=== PATIENT | female | born 1985 ===

== ENCOUNTER 2020-03-08 18:12 | Inpatient (IN) | payer MEDICAID ==
[~2020-03-08] VITALS: Ht 165.1 cm; Wt 82.3 kg
[~2020-03-08 18:12] MED LIST: AMPICILLIN 1 GM in SODIUM CHLORIDE 0.9% 50 ML IVPB SCH
[2020-03-08 18:30] VITALS: BP 161/110
[2020-03-08] MEDS ORDERED: PREN1TAB60 PO (18:41)
[2020-03-08] MEDS ORDERED: hydrALAzine 20 MG/ML, 1ML IVPush ONE ×2 (19:00)
[2020-03-08] MEDS ORDERED: LACTATED RINGERS 1,000 ML IV SCH ×2 (19:00→20:21)
[2020-03-08] MEDS ORDERED: LABETALOL 5MG/ML 40ML VIAL IVPush ONE (19:00)
[2020-03-08] MEDS ORDERED: hydrALAzine 20 MG/ML, 1ML ONE ×2 (19:02→19:30)
[2020-03-08 19:40] LABS: ALANINE AMINOTRANSFERASE 108 U/L (12-78); ALBUMIN 2.4 g/dL (3.4-5.0); ANION GAP 6 mmol/L (5-15); CALCIUM 8.5 mg/dL (8.5-10.1); CHLORIDE 109 mmol/L (98-107); CREATININE 0.68 mg/dL (0.55-1.02)
[2020-03-08 19:42] LABS: ALKALINE PHOSPHATASE 178 U/L (45-117); BILIRUBIN,TOTAL 0.6 mg/dL (0.2-1.0); TOTAL PROTEIN 6.2 g/dL (6.4-8.2)
[2020-03-08] MEDS ORDERED: MAGNESIUM SULF. PMX 20GM/500ML 500 ML IV ONE (19:43)
[2020-03-08] MEDS ORDERED: ACETAMINOPHEN 325 MG TABLET ONE (19:47)
[2020-03-08 19:49] LABS: MICROSCOPIC INDICATED
[2020-03-08] MEDS: ACETAMINOPHEN 325 MG TABLET PO PRN (19:49)
[2020-03-08 19:58] LABS: MEAN CORPUSCULAR HGB CONC 33.9 g/dL (32.4-35.8); MEAN CORPUSCULAR VOLUME 100.4 fL (80-100); MEAN PLATELET VOLUME 12.7 fL (7.4-10.4); PLATELET COUNT 128 x10^3/uL (130-400); RED BLOOD COUNT 3.51 x10^6/uL (3.82-5.3); RED CELL DISTRIBUTION WIDTH 11.9 % (9.6-15.2)
[2020-03-08 20:05] LABS: BASOPHILS # (AUTO) 0.01 x10^3/uL (0-0.1); BASOPHILS % (AUTO) 0 % (0-1); EOSINOPHILS # (AUTO) 0.04 x10^3/uL (0-0.4); EOSINOPHILS % (AUTO) 1 % (1-7); LYMPHOCYTES # (AUTO) 1.44 x10^3/uL (1-3.4); LYMPHOCYTES % (AUTO) 25 % (22-44); MD MORPH REVIEW ONLY; MONOCYTES # (AUTO) 0.43 x10^3/uL (0.2-0.8); MONOCYTES % (AUTO) 7 % (2-9); NEUTROPHILS # (AUTO) 3.97 x10^3/uL (1.8-6.8); NEUTROPHILS % (AUTO) 67 % (42-75)
[2020-03-08 20:06] LABS: <PLATELET ESTIMATE> DECREASED; LARGE PLATELETS 1+; POLYCHROMASIA 1+
[2020-03-08] MEDS ORDERED: MAGNESIUM SULFATE PMX 4GM/100M 100 ML ONE (20:20)
[2020-03-08] MEDS ORDERED: OXYTOCIN 30U/ 0.9% NaCL 500ML 500 ML IV PRN (20:21)
[2020-03-08] MEDS ORDERED: D5%-LACTATED RINGERS 1,000 ML IV SCH (20:21)
[2020-03-08] MEDS ORDERED: OXYTOCIN 30U/ 0.9% NaCL 500ML 500 ML IV ONE (20:21)
[2020-03-08] MEDS ORDERED: METOCLOPRAMIDE 5 MG/ML, 2ML IVPush PRN (20:30)
[2020-03-08] MEDS ORDERED: AMPICILLIN 2 GM in SODIUM CHLORIDE 0.9% 100 ML IVPB STA (20:30)
[2020-03-08] MEDS ORDERED: FENTANYL PF 100 MCG/2ML IV PRN (20:30)
[2020-03-08] MEDS ORDERED: CALCIUM CARBONATE 500 MG TAB.CHEW PO PRN (20:30)
[2020-03-08] MEDS ORDERED: TERBUTALINE 1 MG/ML, 1ML SQ PRN (20:30)
[2020-03-08] MEDS ORDERED: MAGNESIUM SULFATE PMX 4GM/100M 100 ML IVPB ONE (20:30)
[2020-03-08] MEDS ORDERED: ONDANSETRON 2MG/ML, 2ML IVPush PRN (20:30)
[2020-03-08] MEDS ORDERED: TERBUTALINE 1 MG/ML, 1ML IVPush PRN (20:30)
[2020-03-08] MEDS ORDERED: FENTANYL PF 100 MCG/2ML IVPush PRN (20:30)
[2020-03-08] MEDS ORDERED: SODIUM CITRATE/CITRIC ACID 30 ML UDC PO PRN (20:30)
[2020-03-08] MEDS: MAGNESIUM SULF. PMX 20GM/500ML 500 ML IV SCH (21:34)
[2020-03-08] MEDS ORDERED: ONDANSETRON 2MG/ML, 2ML ONE (21:38)
[2020-03-08] MEDS ORDERED: OXYTOCIN 30U/ 0.9% NaCL 500ML 500 ML ONE (21:54)
[2020-03-08] MEDS ORDERED: LIDOCAINE 1%, 20ML ONE (22:46)
[2020-03-08] MEDS ORDERED: NEWBORN KIT ONE (22:46)
[2020-03-08] MEDS ORDERED: MISOPROSTOL 200 MCG TABLET ONE (22:46)
[2020-03-09 00:16] LABS: AMPHETAMINE SCREEN, URINE Negative (Negative); BARBITURATE SCREEN, URINE Negative (Negative); BENZODIAZEPINE SCREEN, URINE Negative (Negative); CANNABINOID SCREEN, URINE Negative (Negative); COCAINE SCREEN, URINE Negative (Negative); METHADONE SCREEN, URINE Negative (Negative); OPIATE SCREEN, URINE Negative (Negative); PROTEIN/CREATININE RATIO,URINE 1905 (0-200); TOTAL PROTEIN,URINE RANDOM 200 mg/dL (0-12)
[2020-03-09] MEDS ORDERED: ACETAMINOPHEN 325 MG TABLET ONE ×3 (00:55→09:15)
[2020-03-09] MEDS: ACETAMINOPHEN 325 MG TABLET PO PRN ×3 (00:56→09:16)
[2020-03-09] MEDS: AMPICILLIN 1 GM in SODIUM CHLORIDE 0.9% 50 ML IVPB SCH ×2 (01:34→05:37)
[2020-03-09] MEDS ORDERED: MAGNESIUM SULF. PMX 20GM/500ML 500 ML IV ONE (07:32)
[2020-03-09] MEDS: MAGNESIUM SULF. PMX 20GM/500ML 500 ML IV SCH (08:00)
[2020-03-09] MEDS ORDERED: LACTATED RINGERS 1,000 ML IVBOLUS ONE (08:30)
[2020-03-09] MEDS ORDERED: METOCLOPRAMIDE 5 MG/ML, 2ML IV ONE (08:30)
[2020-03-09] MEDS ORDERED: ONDANSETRON 2MG/ML, 2ML IVPush ONE (08:30)
[2020-03-09] MEDS ORDERED: SODIUM CITRATE/CITRIC ACID 30 ML UDC ONE ×2 (10:02→11:27)
[2020-03-09] MEDS ORDERED: METOCLOPRAMIDE 5 MG/ML, 2ML ONE ×2 (10:02→11:27)
[2020-03-09] MEDS ORDERED: AMPICILLIN 1 GM in SODIUM CHLORIDE 0.9% 100 ML IVPB SCH ×2 (10:05→10:30)
[2020-03-09] MEDS ORDERED: HYDROmorphone 2 MG/ML, 1ML IVPush PRN (10:30)
[2020-03-09] MEDS ORDERED: OXYcodone 5 MG/5 ML ORAL.SOL UDC PO PRN (10:30)
[2020-03-09] MEDS ORDERED: ONDANSETRON 2MG/ML, 2ML IVPush PRN (10:30)
[2020-03-09] MEDS ORDERED: MEPERIDINE/PF 25MG/0.5ML IVPush PRN (10:30)
[2020-03-09] MEDS ORDERED: EPHEDRINE 50 MG/ML, 1ML IVPush PRN (10:30)
[2020-03-09] MEDS ORDERED: HYDROcodone/APAP 7.5-325MG/15ML UDC PO PRN (10:30)
[2020-03-09] MEDS ORDERED: METOPROLOL 1 MG/ML, 5ML IV PRN (10:30)
[2020-03-09] MEDS ORDERED: ALBUTEROL SULFATE 2.5 MG/3 ML NPPB PRN (10:30)
[2020-03-09] MEDS ORDERED: LABETALOL 5MG/ML, 20ML IV PRN (10:30)
[2020-03-09] MEDS ORDERED: MIDAZOLAM 1 MG/ML, 2ML IV PRN (10:30)
[2020-03-09] MEDS ORDERED: FENTANYL PF 100 MCG/2ML IV PRN (10:30)
[2020-03-09] MEDS ORDERED: hydrALAzine 20 MG/ML, 1ML IV PRN (10:30)
[2020-03-09] MEDS ORDERED: PROMETHAZINE 25 MG/ML, 1ML IV PRN (10:30)
[2020-03-09] MEDS ORDERED: OXYTOCIN 10 UNITS/ML, 1ML ONE (11:37)
[2020-03-09] MEDS ORDERED: EPINEPHRINE 1 MG/ML, 1ML ONE (11:37)
[2020-03-09] MEDS ORDERED: CEFAZOLIN 1,000 MG ONE (11:37)
[2020-03-09] MEDS ORDERED: EPHEDRINE 50 MG/ML, 1ML ONE (11:37)
[2020-03-09] MEDS ORDERED: FENTANYL PF 100 MCG/2ML ONE (11:37)
[2020-03-09] MEDS ORDERED: OXYcodone/APAP 5/325MG TABLET PO PRN (13:00)
[2020-03-09] MEDS ORDERED: CARBOPROST TROMETHAMINE 250 MCG/ML, 1ML IM PRN (13:00)
[2020-03-09] MEDS ORDERED: BISACODYL 10 MG SUPP PR PRN (13:00)
[2020-03-09] MEDS ORDERED: MISOPROSTOL 200 MCG TABLET PR PRN (13:00)
[2020-03-09] MEDS ORDERED: TRANEXAMIC ACID 100 MG/ML, 10ML IV ONE (13:00)
[2020-03-09] MEDS ORDERED: SIMETHICONE 80 MG CHEW TAB PO PRN (13:00)
[2020-03-09] MEDS ORDERED: ONDANSETRON 2MG/ML, 2ML IV PRN (13:00)
[2020-03-09] MEDS: LACTATED RINGERS 1,000 ML IV SCH ×3 (13:58→22:55)
[2020-03-09] MEDS ORDERED: MISOPROSTOL 200 MCG TABLET ONE (14:14)
[2020-03-09] MEDS ORDERED: LACTATED RINGERS 500 ML IVBOLUS ONE (15:00)
[2020-03-09] MEDS ORDERED: LABETALOL 100 MG TABLET PO PRN (15:00)
[2020-03-09 15:30] VITALS: BP 129/74
[2020-03-09] MEDS: OXYcodone/APAP 5/325MG TABLET PO PRN ×2 (17:49→22:37)
[2020-03-09 17:52] VITALS: BP 140/88
[2020-03-09] MEDS: KETOROLAC 30 MG/1 ML IVPush SCH (18:25)
[2020-03-09 20:40] VITALS: BP 128/78
[2020-03-09 21:08] LABS: MEAN CORPUSCULAR HGB CONC 33.7 g/dL (32.4-35.8); MEAN CORPUSCULAR VOLUME 100.9 fL (80-100); MEAN PLATELET VOLUME 11.8 fL (7.4-10.4); PLATELET COUNT 106 x10^3/uL (130-400); RED BLOOD COUNT 2.92 x10^6/uL (3.82-5.3); RED CELL DISTRIBUTION WIDTH 12.3 % (9.6-15.2)
[2020-03-09] MEDS: OXYTOCIN 30U/ 0.9% NaCL 500ML 500 ML IV SCH (21:40)
[2020-03-09 21:46] LABS: BASOPHILS # (AUTO) 0.02 x10^3/uL (0-0.1); BASOPHILS % (AUTO) 0 % (0-1); EOSINOPHILS # (AUTO) 0.01 x10^3/uL (0-0.4); EOSINOPHILS % (AUTO) 0 % (1-7); LYMPHOCYTES # (AUTO) 1.08 x10^3/uL (1-3.4); LYMPHOCYTES % (AUTO) 13 % (22-44); MD SCAN; MONOCYTES # (AUTO) 0.67 x10^3/uL (0.2-0.8); MONOCYTES % (AUTO) 8 % (2-9); NEUTROPHILS # (AUTO) 6.69 x10^3/uL (1.8-6.8); NEUTROPHILS % (AUTO) 79 % (42-75)
[2020-03-10] VITALS (9 sets, daily range): BP systolic 130–151; BP diastolic 86–92
[2020-03-10] MEDS: KETOROLAC 30 MG/1 ML IVPush SCH ×4 (00:28→18:27)
[2020-03-10] MEDS: OXYcodone/APAP 5/325MG TABLET PO PRN ×4 (04:33→22:47)
[2020-03-10] MEDS: LACTATED RINGERS 1,000 ML IV SCH ×5 (04:55→20:55)
[2020-03-10] MEDS: PRENATAL VIT/IRON/FA 1 EACH TABLET PO SCH (10:25)
[2020-03-10] MEDS: OXYTOCIN 30U/ 0.9% NaCL 500ML 500 ML IV SCH ×2 (10:25→19:13)
[2020-03-10] MEDS: LABETALOL 100 MG TABLET PO SCH ×2 (10:52→20:29)
[2020-03-10] MEDS: DOCUSATE 100 MG CAPSULE PO PRN (20:29)
[2020-03-11] VITALS (8 sets, daily range): BP systolic 144–167; BP diastolic 80–98
[2020-03-11] MEDS: KETOROLAC 30 MG/1 ML IVPush SCH (00:34)
[2020-03-11] MEDS: OXYTOCIN 30U/ 0.9% NaCL 500ML 500 ML IV SCH (04:55)
[2020-03-11] MEDS: LACTATED RINGERS 1,000 ML IV SCH ×2 (04:55)
[2020-03-11] MEDS: OXYcodone/APAP 5/325MG TABLET PO PRN ×3 (05:47→21:07)
[2020-03-11] MEDS: IBUPROFEN 800 MG TABLET PO PRN ×2 (06:33→14:05)
[2020-03-11] MEDS: PRENATAL VIT/IRON/FA 1 EACH TABLET PO SCH (07:32)
[2020-03-11] MEDS: DOCUSATE 100 MG CAPSULE PO PRN ×2 (07:32→21:03)
[2020-03-11] MEDS: LABETALOL 100 MG TABLET PO SCH ×2 (07:32→21:03)
[2020-03-11] MEDS ORDERED: DIPH,PERTUSS(ACELL),TET VAC/PF NC IM-VACC ONE (12:00)
[2020-03-11] MEDS ORDERED: MEASLES,MUMPS&RUBELLA VACC/PF 0.5 ML SQ-VACC ONE (12:00)
[2020-03-12] MEDS: OXYcodone/APAP 5/325MG TABLET PO PRN ×3 (03:03→11:30)
[2020-03-12 04:00] VITALS: BP 157/91
[2020-03-12 07:30] VITALS: BP 178/114
[2020-03-12] MEDS: IBUPROFEN 800 MG TABLET PO PRN (07:36)
[2020-03-12] MEDS: PRENATAL VIT/IRON/FA 1 EACH TABLET PO SCH (07:37)
[2020-03-12] MEDS: LABETALOL 100 MG TABLET PO SCH (07:37)
[2020-03-12] MEDS: DOCUSATE 100 MG CAPSULE PO PRN (07:37)
[2020-03-12 09:10] VITALS: BP 142/87
[2020-03-12] MEDS ORDERED: MEASLES,MUMPS&RUBELLA VACC/PF 0.5 ML SQ-VACC ONE (10:05)
[2020-03-12] MEDS ORDERED: OXYC-302 PO (10:10)
[2020-03-12] MEDS ORDERED: IBUP-1222 PO (10:17)
[2020-03-12] MEDS ORDERED: LABE100T6 PO (10:18)
[2020-03-12] MEDS ORDERED: DOCU-131 PO (10:18)
== END 2020-03-12 12:30 | disposition home or self-care (01) | DRG 788 ==
LOC: LDOP 18:12 → LDIP 20:27 → 2NW 03-09 15:30
PROVIDERS: ADMIT Obstetrics & Gynecology; ATTEND Obstetrics & Gynecology
PROC: 10D00Z1 Extraction of Products of Conception, Low, Open Approach (ICD-10-PCS; principal; 2020-03-09)
DX: O14.24 HELLP syndrome, complicating childbirth (principal); O77.0 Labor and delivery complicated by meconium in amniotic fluid; Z37.0 Single live birth; Z3A.36 36 weeks gestation of pregnancy; Z23 Encounter for immunization
CPT/HCPCS: 36415; 76805; 80053; 80307; 81001; 82570; 83735; 84156; 84550; 85025; 86592; 86762; 86850; 86900; 87340; 87806; 88307; 90715; G0378; J0171; J0290; J0690; J1885; J3010; J7120; G0475; J0360; J2590; J3475

== ENCOUNTER 2020-07-06 12:19 | Emergency (ER) | payer MEDICAID ==
[~2020-07-06 12:19] MED LIST changes: -AMPICILLIN 1 GM in SODIUM CHLORIDE 0.9% 50 ML IVPB SCH; +DOCU-131 PO; +IBUP-1222 PO; +LABE100T6 PO; +OXYC-302 PO; +PREN1TAB60 PO
[2020-07-06] MEDS ORDERED: ONDANSETRON 2MG/ML, 2ML IVPush ONE (13:00)
[2020-07-06] MEDS ORDERED: SODIUM CHLORIDE FLUSH 10ML SYR IVF ONE (13:00)
--- NOTE | 2020-07-06 13:09 | NUR ---
This RN had no interaction with patient as patient requested female staff only.
[2020-07-06] MEDS ORDERED: ONDANSETRON 2MG/ML, 2ML ONE (13:11)
--- NOTE | 2020-07-06 13:33 | NUR ---
PIV STARTED, LABS DRAWN AND PT MEDICATED PER EMAR.
[2020-07-06 13:38] LABS: BASOPHILS # (AUTO) 0.02 x10^3/uL (0-0.1); BASOPHILS % (AUTO) 0 % (0-1); EOSINOPHILS # (AUTO) 0.05 x10^3/uL (0-0.4); EOSINOPHILS % (AUTO) 1 % (1-7); LYMPHOCYTES # (AUTO) 1.26 x10^3/uL (1-3.4); LYMPHOCYTES % (AUTO) 28 % (22-44); MD NO; MEAN CORPUSCULAR HEMOGLOBIN 32.1 pg (27.0-34.8); MEAN CORPUSCULAR HGB CONC 33.7 g/dL (32.4-35.8); MEAN CORPUSCULAR VOLUME 95.3 fL (80-100); MONOCYTES # (AUTO) 0.29 x10^3/uL (0.2-0.8); MONOCYTES % (AUTO) 7 % (2-9); NEUTROPHILS # (AUTO) 2.83 x10^3/uL (1.8-6.8); NEUTROPHILS % (AUTO) 64 % (42-75); PLATELET COUNT 238 x10^3/uL (130-400); RED BLOOD COUNT 3.83 x10^6/uL (3.82-5.3); RED CELL DISTRIBUTION WIDTH 12.9 % (9.6-15.2)
--- NOTE | 2020-07-06 13:42 | NUR ---
BEDSIDE COMMODE BROUGHT INTO ROOM PER REQUEST FROM PATIENT. EDUCATED ON NEED FOR URINE SAMPLE.
--- NOTE | 2020-07-06 13:45 | NUR ---
RADIOLOGY CALLED TO INFORM PT PREFERS FEMALE STAFF ONLY DUE TO MORAVIAN REASONS.
[2020-07-06 13:48] LABS: ALANINE AMINOTRANSFERASE 26 U/L (12-78); ALBUMIN 3.7 g/dL (3.4-5.0); ANION GAP 6 mmol/L (5-15); CALCIUM 8.4 mg/dL (8.5-10.1); CHLORIDE 108 mmol/L (98-107)
--- NOTE | 2020-07-06 14:02 | NUR ---
URINE COLLECTED AND SENT TO LAB.
--- NOTE | 2020-07-06 14:02 | NUR ---
PT REPORTS RELIEF OF NAUSEA AFTER MEDS. RESTING ON GURNEY W/ CALL LIGHT IN REACH AND FAMILY AT BEDSIDE. RESP EVEN AND UNLABORED, KRYSTAL.
[2020-07-06 14:05] LABS: ALKALINE PHOSPHATASE 45 U/L (45-117); TROPONIN I < 0.015 ng/mL (0.000-0.045)
[2020-07-06 14:11] LABS: MICROSCOPIC NOT IND
--- NOTE | 2020-07-06 14:17 | NUR ---
PT DECLINES TRANSVAGINAL US. WOULD LIKE ABD. EDUCATED ON NEED FOR FULL BLADDER FOR EXAM PER .
--- NOTE | 2020-07-06 14:27 | NUR ---
1L NS BOLUS STARTED. PT RESTING ON GURNEY W/ CALL LIGHT IN REACH AND FAMILY AT BEDSIDE. KRYSTYNA, KRYSTAL.
[2020-07-06] MEDS ORDERED: SODIUM CHLORIDE 0.9% 1,000ML IVBOLUS ONE (14:30)
--- NOTE | 2020-07-06 14:34 | NUR ---
PT NEED TO HAVE FULL BLADDER FOR US EXAM - US DELAY
--- NOTE | 2020-07-06 14:52 | NUR ---
US TECH IN ROOM.
[2020-07-06 15:21] VITALS: BP 110/68
--- NOTE | 2020-07-06 15:40 | NUR ---
ALL TESTS RESULTED. PT IS UP FOR RECHECK AT THIS TIME. PT RESTING ON GURNEY W/ CALL LIGHT IN REACH AND FAMILY AT BEDSIDE. RESP EVEN AND UNLABORED, KRYSTAL.
--- NOTE | 2020-07-06 16:03 | NUR ---
TERI IN ROOM FOR RECHECK.
--- NOTE | 2020-07-06 16:31 | NUR ---
Patient given discharge instructions and they have confirmed that they understand the instructions. Patient ambulatory with steady gait.
== END 2020-07-06 16:33 | disposition home or self-care (01) ==
LOC: ED 13:12
DX: O34.81 Maternal care for other abnormalities of pelvic organs, first trimester (principal); N83.201 Unspecified ovarian cyst, right side; R11.2 Nausea with vomiting, unspecified; R94.31 Abnormal electrocardiogram [ECG] [EKG]; Z3A.09 9 weeks gestation of pregnancy
CPT/HCPCS: 36415; 76856; 80053; 81003; 83690; 84484; 84702; 84703; 85025; 85379; 93005; 96361; 96374; 99285; J2405; J7030

== ENCOUNTER 2021-02-08 10:27 | Outpatient (CLI) | payer MEDICAID ==
[~2021-02-08] VITALS: Ht 157.5 cm; Wt 62.0 kg
[~2021-02-08 10:27] MED LIST changes: -OXYC-302 PO; +OXYC1TAB14 PO
[2021-02-08 11:32] LABS: MICROSCOPIC INDICATED
[2021-02-08 12:03] LABS: AMPHETAMINE SCREEN, URINE Negative (Negative); BARBITURATE SCREEN, URINE Negative (Negative); BENZODIAZEPINE SCREEN, URINE Negative (Negative); CANNABINOID SCREEN, URINE Negative (Negative); COCAINE SCREEN, URINE Negative (Negative); METHADONE SCREEN, URINE Negative (Negative); OPIATE SCREEN, URINE Negative (Negative)
== END 2021-02-08 12:50 | disposition home or self-care (01) ==
LOC: LDOP 10:27
PROVIDERS: ATTEND Obstetrics & Gynecology
DX: O09.523 Supervision of elderly multigravida, third trimester (principal); Z3A.39 39 weeks gestation of pregnancy
CPT/HCPCS: 59025; 76819; 80307; 81001; 87086

== ENCOUNTER 2021-02-18 07:32 | Inpatient (IN) | payer MEDICAID ==
[~2021-02-18] VITALS: Ht 162.6 cm; Wt 67.3 kg
[2021-02-18] MEDS ORDERED: LACTATED RINGERS 1,000 ML IV SCH (12:00)
[2021-02-18] MEDS ORDERED: LACTATED RINGERS 1,000 ML IVBOLUS ONE (12:00)
[2021-02-18] MEDS ORDERED: METOCLOPRAMIDE 5 MG/ML, 2ML IV ONE (12:00)
[2021-02-18] MEDS ORDERED: SODIUM CITRATE/CITRIC ACID 30 ML UDC PO ONE (12:00)
[2021-02-18 12:03] LABS: BASOPHILS % (AUTO) 1 % (0-1); EOSINOPHILS % (AUTO) 1 % (1-7); LYMPHOCYTES % (AUTO) 22 % (22-44); MEAN CORPUSCULAR HEMOGLOBIN 34.5 pg (27.0-34.8); MEAN CORPUSCULAR HGB CONC 34.7 g/dL (32.4-35.8); MEAN PLATELET VOLUME 9.8 fL (7.4-10.4); MONOCYTES % (AUTO) 7 % (2-9); NEUTROPHILS % (AUTO) 70 % (42-75); PLATELET COUNT 162 x10^3/uL (130-400); RED BLOOD COUNT 3.66 x10^6/uL (3.82-5.3); RED CELL DISTRIBUTION WIDTH 12.2 % (9.6-15.2)
[2021-02-18 12:06] LABS: MD NO
[2021-02-18] MEDS ORDERED: FENTANYL PF 100 MCG/2ML ONE (12:18)
[2021-02-18] MEDS ORDERED: CEFAZOLIN 1,000 MG ONE ×2 (12:19)
[2021-02-18] MEDS ORDERED: KETOROLAC 30 MG/1 ML ONE (12:19)
[2021-02-18] MEDS ORDERED: OXYTOCIN 10 UNITS/ML, 1ML ONE ×4 (12:19)
[2021-02-18] MEDS ORDERED: NEWBORN KIT ONE ×2 (12:31→12:56)
[2021-02-18] MEDS ORDERED: SODIUM CITRATE/CITRIC ACID 15 ML UDC ONE (12:55)
[2021-02-18] MEDS ORDERED: OXYTOCIN 30U/ 0.9% NaCL 500ML 500 ML ONE (12:56)
[2021-02-18 14:03] LABS: BARBITURATE SCREEN, URINE Negative (Negative); BENZODIAZEPINE SCREEN, URINE Negative (Negative); CANNABINOID SCREEN, URINE Negative (Negative); COCAINE SCREEN, URINE Negative (Negative); METHADONE SCREEN, URINE Negative (Negative); OPIATE SCREEN, URINE Negative (Negative)
[2021-02-18 14:04] LABS: AMPHETAMINE SCREEN, URINE Negative (Negative)
[2021-02-18] MEDS ORDERED: ONDANSETRON 2MG/ML, 2ML IVPush PRN (16:00)
[2021-02-18] MEDS ORDERED: FENTANYL PF 100 MCG/2ML IV PRN (16:00)
[2021-02-18] MEDS ORDERED: EPHEDRINE 50 MG/ML, 1ML IVPush PRN (16:00)
[2021-02-18] MEDS ORDERED: DIPHENHYDRAMINE 50 MG/ML, 1ML IM PRN (16:00)
[2021-02-18] MEDS ORDERED: morphine SULFATE 10 MG/ML, 1ML IVPush PRN (16:00)
[2021-02-18] MEDS: LACTATED RINGERS 1,000 ML IV SCH ×2 (16:30→16:32)
[2021-02-18] MEDS ORDERED: MISOPROSTOL 200 MCG TABLET PR PRN (16:30)
[2021-02-18] MEDS ORDERED: SIMETHICONE 80 MG CHEW TAB PO PRN (16:30)
[2021-02-18] MEDS ORDERED: DOCUSATE 100 MG CAPSULE PO PRN (16:30)
[2021-02-18] MEDS: OXYTOCIN 30U/ 0.9% NaCL 500ML 500 ML IV SCH (16:32)
[2021-02-18] MEDS: OXYcodone 5 MG/5 ML ORAL.SOL UDC PO PRN ×2 (17:48→17:51)
[2021-02-18 18:27] VITALS: BP 126/70
[2021-02-18 19:47] VITALS: BP 126/79
[2021-02-18] MEDS: KETOROLAC 30 MG/1 ML IV SCH ×2 (22:04→22:30)
[2021-02-18 23:35] LABS: BASOPHILS % (AUTO) 0 % (0-1); EOSINOPHILS % (AUTO) 0 % (1-7); LYMPHOCYTES % (AUTO) 15 % (22-44); MEAN CORPUSCULAR HEMOGLOBIN 34.4 pg (27.0-34.8); MEAN CORPUSCULAR HGB CONC 34.7 g/dL (32.4-35.8); MEAN PLATELET VOLUME 8.9 fL (7.4-10.4); MONOCYTES % (AUTO) 4 % (2-9); NEUTROPHILS % (AUTO) 81 % (42-75); PLATELET COUNT 133 x10^3/uL (130-400); RED BLOOD COUNT 3.26 x10^6/uL (3.82-5.3); RED CELL DISTRIBUTION WIDTH 11.9 % (9.6-15.2)
[2021-02-18 23:36] LABS: MD NO
[2021-02-19 00:27] VITALS: BP 109/64
[2021-02-19] MEDS: LACTATED RINGERS 1,000 ML IV SCH ×6 (00:30→22:30)
[2021-02-19] MEDS: OXYcodone/APAP 5/325MG TABLET PO PRN ×4 (02:01→16:20)
[2021-02-19] MEDS: OXYTOCIN 30U/ 0.9% NaCL 500ML 500 ML IV SCH ×3 (02:30→22:30)
[2021-02-19 04:05] VITALS: BP 109/69
[2021-02-19] MEDS: KETOROLAC 30 MG/1 ML IV SCH ×4 (04:08→22:25)
[2021-02-19 07:10] VITALS: BP 116/83
[2021-02-19] MEDS: PRENATAL VIT/IRON/FA 1 EACH TABLET PO SCH (09:00)
[2021-02-19 12:00] VITALS: BP 115/77
[2021-02-19 20:00] VITALS: BP 128/85
[2021-02-20] MEDS: KETOROLAC 30 MG/1 ML IV SCH ×2 (04:38→10:21)
[2021-02-20 07:54] VITALS: BP 130/83
[2021-02-20] MEDS ORDERED: SIME80TA16 PO (08:43)
[2021-02-20] MEDS ORDERED: IBUP-1223 PO (08:44)
[2021-02-20] MEDS ORDERED: OXYC1TAB14 PO (08:45)
[2021-02-20] MEDS: OXYcodone/APAP 5/325MG TABLET PO PRN ×2 (08:50→14:54)
[2021-02-20] MEDS: PRENATAL VIT/IRON/FA 1 EACH TABLET PO SCH (09:00)
[2021-02-20] MEDS ORDERED: IBUPROFEN 600 MG TABLET PO PRN (16:30)
== END 2021-02-20 15:15 | disposition home or self-care (01) | DRG 540 ==
LOC: LDIP 11:37 → 2NW 18:15
PROVIDERS: ADMIT Obstetrics & Gynecology; ATTEND Obstetrics & Gynecology
PROC: 10D00Z1 Extraction of Products of Conception, Low, Open Approach (ICD-10-PCS; principal; 2021-02-18)
DX: O34.211 Maternal care for low transverse scar from previous cesarean delivery (principal); O63.9 Long labor, unspecified; Z37.0 Single live birth; Z3A.41 41 weeks gestation of pregnancy; Z20.822 Contact with and (suspected) exposure to COVID-19
CPT/HCPCS: 36415; 80307; 85025; 86592; 86850; 86900; 87635; G0378; J0690; J1885; J3010; J1200; J2590; J2765; J7120